=== PATIENT | female | born 1930 | race Caucasian/White ===

== ENCOUNTER 2017-01-11 13:42 | Emergency (ER) | payer OTHER ==
[~2017-01-11] VITALS: Ht 165.1 cm; Wt 92.1 kg
[~2017-01-11 13:42] MED LIST: ACET-1138 PO; ASPEC325 PO; CALC150C PO; CHOL1000 PO; COEN75CA PO; FRRG PO; IPRA0.037 NAE; LEVO112T2 PO; MULT-614 PO; NAPR220T40 PO; PRAV40TA2 PO; ULT50X PO
[2017-01-11 13:50] VITALS: TEMP 36.4; O2SAT 94; Ht 165.1 cm; Wt 92.1 kg
--- NOTE | 2017-01-11 14:04 | EMERGENCY ROOM VISIT NOTE ---
History First contact with patient: 13:49 Chief Complaint: CHEST PAIN Stated Complaint: CHEST PAIN Nursing Triage Summary: Patient arrives via ALS from the [facility] with complaints of chest pain. Patient reports walking in the [place] when suddenly she got 3 sharp pains in her chest, patient sat down to rest and called ambulance. Patient is now pain free, no complaints at this time. History of Present Illness The patient is an 86 year old female who presents to the Emergency Room with complaints of chest pain. The patient states that approximately 2 hours ago she was walking out of the [employer]. She states that she noticed 3 very distinct, sharp, "jabs of pain." She states the pain was in the area of the right breast and did not radiate. She states that after these 3 "jabs" of pain she has not had any discomfort, pressure. She has not had any shortness of breath. She states she did not do any strenuous activity at the [employer]. She denies any pain currently. She denies any diaphoresis. She denies any rashes to the chest. The patient states she has had intermittent headaches recently but has no headache today. She denies any numbness, tingling or weakness in the upper or lower extremities. She denies syncope. She denies nausea, vomiting, abdominal pain. She denies any urinary symptoms. The patient states she has never had a stress test. Review of Systems A 10 system review of systems was completed with positives and pertinent negatives listed in the HPI. Past Medical/Surgical History Medical Problems: (1) HLD (hyperlipidemia) (2) Hypothyroidism (3) Osteoporosis (4) Right Knee DJD Surgical Problems: (1) H/O thyroidectomy (2) History of total abdominal hysterectomy Family History FH: cancer Social History Smoking Status: Never Smoker Marital Status: Housing Status: lives with family Occupation Status: retired Current/Historical Medications Scheduled Acetaminophen (Tylenol Extra Strength), 1,000 MG PO Q8 Aspirin (Aspirin Ec), 81 MG PO DAILY Calcium Citrate (Vinicio-Citrate), 300 MG PO QAM Donepezil HCl (Donepezil HCl), 1 TAB PO DAILY Levothyroxine Sodium (Synthroid), 112 MCG PO QAM Multiple Vitamins W/ Minerals (Centrum Silver Ultra [place]ome), 1 TAB PO QAM Naproxen Sodium (Aleve), 220 MG PO AMPM Pravastatin Sodium (Pravastatin Sodium), 40 MG PO QPM Venlafaxine HCl (Venlafaxine HCl), 1 TAB PO BID Allergies Coded Allergies: No Known Allergies (Unverified , 01/11/17) Physical Exam Vital Signs Date Time Temp Pulse Resp B/P Pulse Ox O2 Delivery O2 Flow Rate FiO2 01/11/17 16:41 72 18 138/76 97 Room Air 01/11/17 15:14 73 18 140/85 96 Room Air 01/11/17 14:36 72 22 161/72 96 Room Air 01/11/17 13:50 94 Room Air 01/11/17 13:50 94 Room Air 01/11/17 13:50 36.4 86 18 150/70 94 Room Air 01/11/17 13:48 88 Physical Exam VITALS: Vitals are noted on the nurse's note and reviewed by myself. Vital signs stable. GENERAL: This is an 86-year-old female, in no acute distress, nondiaphoretic, well-developed well-nourished. SKIN: The skin was without rashes, erythema, edema, or bruising. There is no tenting of the skin. Capillary reflex less than 2 seconds. HEAD: Normocephalic atraumatic. EARS: External auditory canals clear, tympanic membranes pearly baker without erythema or effusion bilaterally. EYES: Pupils equal round and reactive to light and accommodation. Conjunctivae without injection, sclerae without icterus. Extraocular movements intact. NOSE: Patent, turbinates without inflammation or discharge. No sinus tenderness. MOUTH: Mucous membranes moist. Tonsils are not enlarged. Pharynx without erythema or exudate. Uvula midline. Airway patent. Tongue does not deviate. NECK: Supple without nuchal rigidity. No lymphadenopathy. No thyromegaly. Cervical spine is nontender. No JVD. HEART: Regular rate and rhythm without murmurs gallops or rubs. LUNGS: Clear to auscultation bilaterally without wheezes, rales or rhonchi. No retractions or accessory muscle use. There is tenderness to palpation over the right chest in the area at the breast. There are no rashes. ABDOMEN: Positive bowel sounds x 4. Soft, nontender, without masses or organomegaly. MUSCULOSKELETAL: No muscle atrophy, erythema, or edema noted. Full range of motion in all extremities. No tenderness to palpation. Normal gait. Strength 5/5 throughout. NEURO: Patient was alert and oriented to person place and time. No focal neurological deficits. Medical Decision & Procedures ER Provider Diagnostic Interpretation: [~ rep ct add3]] CHEST ONE VIEW PORTABLE CLINICAL HISTORY: Atypical chest pain COMPARISON STUDY: 11/23/2012 FINDINGS: The cardiac and mediastinal contours are normal. There is no evidence of focal pulmonary consolidation. There is no evidence of failure. No pleural effusions are visualized.[ There is a calcified granuloma the left lung base. There is a linear area of scar/atelectatic change at the left lung base. IMPRESSION: No active disease in the chest. Laboratory Results 01/11/17 13:55 Red Blood Count 4.55, Mean Corpuscular Volume 89.0, Mean Corpuscular Hemoglobin 29.0, Mean Corpuscular Hemoglobin Concent 32.6, Mean Platelet Volume 10.6, Neutrophils (%) (Auto) 65.4, Lymphocytes (%) (Auto) 23.9, Monocytes (%) (Auto) 8.7, Eosinophils (%) (Auto) 1.8, Basophils (%) (Auto) 0.2, Neutrophils # (Auto) 4.29, Lymphocytes # (Auto) 1.57, Monocytes # (Auto) 0.57, Eosinophils # (Auto) 0.12, Basophils # (Auto) 0.01 01/11/17 14:25 Test 01/11/17 13:55 01/11/17 14:25 01/11/17 16:12 White Blood Count 6.56 K/uL (4.8-10.8) Red Blood Count 4.55 M/uL (4.2-5.4) Hemoglobin 13.2 g/dL (12.0-16.0) Hematocrit 40.5 % (37-47) Mean Corpuscular Volume 89.0 fL (80-100) Mean Corpuscular Hemoglobin 29.0 pg (25-34) Mean Corpuscular Hemoglobin Concent 32.6 g/dl (32-36) Platelet Count 199 K/uL (130-400) Mean Platelet Volume 10.6 fL (7.4-10.4) Neutrophils (%) (Auto) 65.4 % Lymphocytes (%) (Auto) 23.9 % Monocytes (%) (Auto) 8.7 % Eosinophils (%) (Auto) 1.8 % Basophils (%) (Auto) 0.2 % Neutrophils # (Auto) 4.29 K/uL (1.4-6.5) Lymphocytes # (Auto) 1.57 K/uL (1.2-3.4) Monocytes # (Auto) 0.57 K/uL (0.11-0.59) Eosinophils # (Auto) 0.12 K/uL (0-0.5) Basophils # (Auto) 0.01 K/uL (0-0.2) RDW Standard Deviation 47.4 fL (36.4-46.3) RDW Coefficient of Variation 14.4 % (11.5-14.5) Immature Granulocyte % (Auto) 0.0 % Immature Granulocyte # (Auto) 0.00 K/uL (0.00-0.02) Prothrombin Time 10.4 SECONDS (9.0-12.0) Prothromb Time International Ratio 1.0 (0.9-1.1) Activated Partial Thromboplast Time 25.6 SECONDS (21.0-31.0) Partial Thromboplastin Ratio 1.0 Anion Gap 5.0 mmol/L (3-11) Est Creatinine Clear Calc Drug Dose 61.2 ml/min Estimated GFR () 85.0 Estimated GFR (Non- 73.4 BUN/Creatinine Ratio 33.2 (10-20) Calcium Level 9.8 mg/dl (8.5-10.1) Total Bilirubin 0.3 mg/dl (0.2-1) Aspartate Amino Transf (AST/SGOT) 19 U/L (15-37) Alanine Aminotransferase (ALT/SGPT) 22 U/L (12-78) Alkaline Phosphatase 88 U/L (45-117) Total Creatine Kinase 36 U/L (26-192) Creatine Kinase MB 0.5 ng/ml (0.5-3.6) Creatine Kinase MB Ratio 1.4 (0-3.0) Total Protein 7.5 gm/dl (6.4-8.2) Albumin 3.6 gm/dl (3.4-5.0) Globulin 3.9 gm/dl (2.5-4.0) Albumin/Globulin Ratio 0.9 (0.9-2) Troponin I < 0.015 ng/ml (0-0.045) Procedure The patient was monitored on a clinical research monitor. They maintained a normal sinus rhythm without ectopy. While the patient was in the emergency department she had another episode of 5 "jabs." A repeat EKG was obtained which was unchanged. Also, I reviewed the monitor with the monitor tach and there was no evidence for arrhythmia. ECG Indication: chest pain Rate (beats per minute): 70 Rhythm: normal sinus Findings: LAFB, RBBB Change: no significant change ED Course The patient was seen and examined. Previous visits were reviewed. The patient does not have a fever or leukocytosis. She does not have any significant electrolyte abnormalities. Cardiac enzymes were not elevated. Repeat troponin was not elevated. INR was 1.0. Chest x-ray does not reveal any acute arrhythmia EKG is unchanged from previous. The monitor strip was reviewed and the patient complained of 5 "jabs" of pain. There is no evidence for PVC, arrhythmia. The patient presents to the emergency department with right-sided chest pain. She describes this pain as very brief jabs of pain which last less than a few seconds. When she is not having the episode, she is completely pain-free. She has not had any dyspnea. She does have some tenderness to palpation of the chest. The exact etiology is unclear and may be musculoskeletal in nature. She was also advised to watch for rash in the event this represents a neurologic pain from potential shingles. She should contact her family doctor tomorrow to schedule a follow-up appointment for further evaluation and management. She should return to the ER with any worsening symptoms. The patient was also seen and examined by Dr. Delgado who agrees with the assessment and treatment plan. Medical Decision DIFFERENTIAL DIAGNOSIS: Aortic dissection, myocarditis, pericarditis, cervical disc disease, costochondritis, herpes zoster, rib fracture, pleuritis, pneumonia , pulmonary embolus, tension pneumothorax, anxiety disorder, somatoform disorder , choledocholithiasis, status, esophagitis, esophageal spasm, esophageal reflux , esophageal rupture, pancreatitis, peptic ulcer disease, cardiac ischemia, ST elevation MS, acute coronary syndrome, arrhythmia, coronary artery vasospasm. vavular heart disease, coronary artery disease, among others. Impression Primary Impression: Substernal precordial chest pain Departure Information Dispostion Home / Self-Care Condition GOOD Referrals Hugh Alcocer M.D. (PCP) Patient Instructions Chest Pain - [facility], [facility] Additional Instructions Return with constant pain, worsening symptoms Otherwise, recheck with your family doctor this week, call for an appointment
[2017-01-11 14:07] LABS: BASO % 0.2 %; BASO ABS # 0.01 K/uL (0-0.2); COMPLETE YES; EOS % 1.8 %; HEMATOCRIT 40.5 % (37-47); LYMPH % 23.9 %; LYMPH ABS # 1.57 K/uL (1.2-3.4); MEAN CORPUSCULAR HGB CONC 32.6 g/dl (32-36); MEAN PLATELET VOLUME 10.6 fL (7.4-10.4); MONO % 8.7 %; NEUT % 65.4 %; PLATELET COUNT 199 K/uL (130-400); RED BLOOD COUNT 4.55 M/uL (4.2-5.4); WHITE BLOOD COUNT 6.56 K/uL (4.8-10.8)
--- NOTE | 2017-01-11 14:15 | DIAGNOSTIC IMAGING REPORT ---
CHEST ONE VIEW PORTABLE CLINICAL HISTORY: Atypical chest pain COMPARISON STUDY: 11/23/2012 FINDINGS: The cardiac and mediastinal contours are normal. There is no evidence of focal pulmonary consolidation. There is no evidence of failure. No pleural effusions are visualized.[ There is a calcified granuloma the left lung base. There is a linear area of scar/atelectatic change at the left lung base. IMPRESSION: No active disease in the chest. Electronically signed by: Sammy Phillip M.D. 01/11/2017 2:14 PM Dictated Date/Time: 01/11/2017 2:14 PM
[2017-01-11] MEDS ORDERED: ARC5 PO (14:44)
[2017-01-11] MEDS ORDERED: ASPI81TA28 PO (14:44)
[2017-01-11 14:46] LABS: PROTHROMBIN TIME (PATIENT) 10.4 SECONDS (9.0-12.0)
[2017-01-11] MEDS ORDERED: EFF50 PO (14:47)
[2017-01-11 14:55] LABS: ALT/SGPT 22 U/L (12-78); AST/SGOT 19 U/L (15-37); BLOOD UREA NITROGEN 25 mg/dl (7-18); BUN/CREATININE RATIO 33.2 (10-20); CALCIUM 9.8 mg/dl (8.5-10.1); CARBON DIOXIDE 31 mmol/L (21-32); CHLORIDE 107 mmol/L (98-107); CREATININE 0.74 mg/dl (0.60-1.20); GLUCOSE 96 mg/dl (70-99); SODIUM 143 mmol/L (136-145)
[2017-01-11 15:00] LABS: ALB/GLOB RATIO 0.9 (0.9-2); ALKALINE PHOSPHATASE 88 U/L (45-117); CKMB/CK RATIO 1.4 (0-3.0)
[2017-01-11 16:41] VITALS: BP 138/76; PULSE 72; O2SAT 97
--- NOTE | 2017-01-11 20:36 | EMERGENCY ROOM VISIT NOTE ---
ED Visit Note First contact with patient: 13:49 I have personally seen and evaluated the patient with the PA. I agree with the diagnosis and management decisions and have been personally involved in the case. Please see Rosy Whitaker PA-C's notes for further details of the history, physical and visit.
== END 2017-01-11 17:17 | disposition home or self-care (01) ==
LOC: EDBD 13:42 → C.EDB 13:43
DX: R07.2 Precordial pain (principal); E78.5 Hyperlipidemia, unspecified; E03.9 Hypothyroidism, unspecified; M81.0 Age-related osteoporosis without current pathological fracture; Z79.82 Long term (current) use of aspirin

== ENCOUNTER 2017-12-21 07:05 | Observation (INO) | payer OTHER ==
[~2017-12-21] VITALS: Ht 154.9 cm; Wt 97.7 kg
[~2017-12-21 07:05] MED LIST changes: +ARC5 PO; -ASPEC325 PO; +ASPI81TA28 PO; -CHOL1000 PO; -COEN75CA PO; +EFF50 PO; -FRRG PO; -IPRA0.037 NAE; -ULT50X PO
[2017-12-21] MEDS ORDERED: ACETAMINOPHEN 325 MG TAB PO STA (07:22)
--- NOTE | 2017-12-21 07:23 | EMERGENCY ROOM VISIT NOTE ---
History Report prepared by Rachael: Cliff Valenzuela Under the Supervision of: Dr. Emily Delgado M.D. First contact with patient: 07:11 Stated Complaint: HIP AND LEG PAIN History of Present Illness The patient is a 87 year old female who presents to the Emergency Room with complaints of intermittent left leg pain that began last night. The patient states that she is here today because "I couldn't get out of bed this morning without it killing me." The patient's daughter at bedside notes that the patient began to complain of the left leg pain last night, but was able to ambulate normally. This morning the patient yelled for the daughter to come help her out of bed, as she was unable to get up. The daughter notes that the patient was in a lot of pain this morning, which was worsened significantly by the slight movement of trying to put her socks on for her. She currently does not have any pain if she is laying flat. The patient deny and recent urinary irregularities or fevers. She notes that she does not take any medication for her blood pressures. Source of History: patient, family Onset: Last night Position: leg (left, and hip) Timing: intermittent Modifying Factors (Worsening): movement Modifying Factors (Relieving): other (laying flat) Associated Symptoms: No fevers, No urinary symptoms Review of Systems See HPI for pertinent positives & negatives. A total of 10 systems reviewed and were otherwise negative. Past Medical & Surgical Medical Problems: (1) HLD (hyperlipidemia) (2) Hypothyroidism (3) Osteoporosis (4) Right Knee DJD Surgical Problems: (1) H/O thyroidectomy (2) History of total abdominal hysterectomy Family History FH: cancer Social History Smoking Status: Never Smoker Marital Status: Housing Status: lives with family Occupation Status: retired Current/Historical Medications Scheduled Aspirin (Aspirin Ec), 81 MG PO DAILY Calcium Citrate (Vinicio-Citrate), 300 MG PO QAM Levothyroxine Sodium (Synthroid), 112 MCG PO QAM Mirtazapine (Mirtazapine), 15 MG PO HS Multiple Vitamins W/ Minerals (Centrum Silver Ultra [place]), 1 TAB PO QAM Naproxen Sodium (Aleve), 220 MG PO AMPM Pravastatin Sodium (Pravastatin Sodium), 40 MG PO QPM Allergies Coded Allergies: No Known Allergies (Unverified , 01/11/17) Physical Exam Vital Signs Date Time Temp Pulse Resp B/P (MAP) Pulse Ox O2 Delivery O2 Flow Rate FiO2 12/21/17 18:45 65 18 197/92 96 Room Air 12/21/17 17:28 71 20 220/91 99 Room Air 12/21/17 16:04 63 18 165/83 97 Room Air 12/21/17 13:00 66 18 171/88 98 Room Air 12/21/17 11:30 67 18 167/85 98 Room Air 12/21/17 09:55 66 18 170/85 98 Room Air 12/21/17 09:29 76 20 171/75 98 12/21/17 07:35 70 20 208/99 96 12/21/17 07:13 36.8 88 20 205/137 95 Room Air Physical Exam Vital signs reviewed. General: Well-appearing, obese, elderly female, in no significant distress. HEENT: No scleral icterus, PERRLA, neck supple. Atraumatic. Cardiovascular: Regular rate and rhythm, no extra sounds. Pulmonary: Clear to auscultation bilaterally, normal work of breathing. Abdomen: Soft, nontender, nondistended, positive bowel sounds. Musculoskeletal: Atraumatic, no peripheral edema. Intermittent pain with straight leg raise to the left inguinal region. Full ROM of the left hip without crepitus. Neurologic: Patient awake alert and answers most questions appropriately. Occasional confusion. full strength in all 4 extremities. Cranial nerves 2 through 12 grossly intact. Skin: Warm, dry, no rash Medical Decision & Procedures ER Provider Diagnostic Interpretation: Radiology results as stated below per my review and radiologist interpretation: LEFT HIP 2 VIEWS HISTORY: Left hip pain. COMPARISON: None. FINDINGS: There is no fracture or dislocation. Soft tissues are unremarkable. Mild cartilage space narrowing. IMPRESSION: No fracture or dislocation within the left hip. Electronically signed by: Tej Abdi M.D. 12/21/2017 8:50 AM Dictated Date/Time: 12/21/2017 8:49 AM L-SPINE MIN 4 VIEWS ROUTINE HISTORY: Pain. Lumbar radiculopathy COMPARISON: None. FINDINGS: There is no fracture. Considerable degenerative disc change at the entire lumbar region. Very slight wedge deformity inferior endplate L1 considerable debris old radiographically. No evidence for an acute compression deformity. No significant subluxation. Mild anterior and posterior osteophytic formation throughout. Mild generalized osteopenia. IMPRESSION: Significant degenerative change throughout the entire lumbar region. Osteopenia. No acute bony abnormality. The above report was generated using voice recognition software. It may contain grammatical, syntax or spelling errors. Electronically signed by: Rehan Johnson M.D. 12/21/2017 8:52 AM Dictated Date/Time: 12/21/2017 8:49 AM Laboratory Results Test 12/21/17 08:00 12/21/17 15:05 Urine Color YELLOW Urine Appearance CLOUDY (CLEAR) Urine pH 7.5 (4.5-7.5) Urine Specific [place] 1.018 (1.000-1.030) Urine Protein NEG (NEG) Urine Glucose (UA) NEG (NEG) Urine Ketones NEG (NEG) Urine Occult Blood NEG (NEG) Urine Nitrite NEG (NEG) Urine Bilirubin NEG (NEG) Urine Urobilinogen NEG (NEG) Urine Leukocyte Esterase NEG (NEG) Urine WBC (Auto) 1-5 /hpf (0-5) Urine RBC (Auto) 0-4 /hpf (0-4) Urine Hyaline Casts (Auto) 0 /lpf (0-5) Urine Epithelial Cells (Auto) 0-5 /lpf (0-5) Urine Bacteria (Auto) NEG (NEG) RDW Standard Deviation 46.0 fL (36.4-46.3) RDW Coefficient of Variation 14.3 % (11.5-14.5) White Blood Count 5.58 K/uL (4.8-10.8) Red Blood Count 4.53 M/uL (4.2-5.4) Hemoglobin 13.0 g/dL (12.0-16.0) Hematocrit 39.8 % (37-47) Mean Corpuscular Volume 87.9 fL (80-100) Mean Corpuscular Hemoglobin 28.7 pg (25-34) Mean Corpuscular Hemoglobin Concent 32.7 g/dl (32-36) Platelet Count 165 K/uL (130-400) Mean Platelet Volume 11.2 fL (7.4-10.4) Neutrophils (%) (Auto) 59.6 % Lymphocytes (%) (Auto) 27.1 % Monocytes (%) (Auto) 9.1 % Eosinophils (%) (Auto) 3.8 % Basophils (%) (Auto) 0.2 % Neutrophils # (Auto) 3.33 K/uL (1.4-6.5) Lymphocytes # (Auto) 1.51 K/uL (1.2-3.4) Monocytes # (Auto) 0.51 K/uL (0.11-0.59) Eosinophils # (Auto) 0.21 K/uL (0-0.5) Basophils # (Auto) 0.01 K/uL (0-0.2) Immature Granulocyte % (Auto) 0.2 % Immature Granulocyte # (Auto) 0.01 K/uL (0.00-0.02) Prothrombin Time 10.1 SECONDS (9.0-12.0) Prothromb Time International Ratio 1.0 (0.9-1.1) Est Creatinine Clear Calc Drug Dose 49.9 ml/min Total Bilirubin 0.5 mg/dl (0.2-1) Direct Bilirubin 0.1 mg/dl (0-0.2) Aspartate Amino Transf (AST/SGOT) 16 U/L (15-37) Alanine Aminotransferase (ALT/SGPT) 19 U/L (12-78) Alkaline Phosphatase 79 U/L (45-117) Total Protein 7.2 gm/dl (6.4-8.2) Albumin 3.2 gm/dl (3.4-5.0) Thyroid Stimulating Hormone (TSH) 0.396 uIu/ml (0.300-4.500) Laboratory results per my review. Medications Administered Medications (Trade) Dose Ordered Sig/Vincent Route Start Time Stop Time Status Last Admin Dose Admin Acetaminophen (Tylenol Tab) 650 mg NOW STAT PO 12/21/17 07:22 12/21/17 07:25 DC 12/21/17 07:35 650 MG Lorazepam (Ativan Tab) 0.5 mg NOW STAT SL 12/21/17 07:24 12/21/17 07:25 DC 12/21/17 07:35 0.5 MG Tramadol HCl (Ultram Tab) 50 mg NOW STAT PO 12/21/17 11:12 12/21/17 11:15 DC 12/21/17 11:29 50 MG Ketorolac Tromethamine (Toradol Inj) 15 mg ONE STAT IV 12/21/17 18:45 12/21/17 18:50 DC 12/21/17 21:30 15 MG ED Course 0714: Past medical records reviewed. The patient was evaluated in room B7. A complete history and physical examination was performed. 07: Tylenol 650 mg PO. 0724: Ordered Lorazepam 0.5 mg SL. 1049: Upon reevaluation, the patient appeared to have improvement of her symptoms. I discussed findings with he. She verbalized agreement of the treatment plan. The patient was discharged home. Medical Decision Differential diagnosis: Etiologies such as fracture, dislocation, neurovascular compromise, compartment syndrome, soft tissue injury, as well as others were entertained. This patient was evaluated and appeared to be in no significant distress. When lying in bed she is resting comfortably. X-rays of lumbar spine and the left hip were obtained and are negative for acute fracture. There is significant degenerative disc disease of the low back. Patient was given p.o. Tylenol for her pain. The patient performed an ambulatory trial with a walker with minimal to no assistance. Patient sat in a chair then for approximately 1 hour at the bedside. Upon standing from the chair she yelled in pain. She was given Ultram 50 mg p.o. Patient's daughter became tearful and anxious, stating she was not be able to take the patient home if she cannot walk. The patient was able to ambulate for me at the bedside thereafter however not able to lift her left leg without hesitancy/pain. A PT/OT evaluation was ordered. Patient was felt not to be safe for discharge home. They did recommend a CT scan of the pelvis which was performed and negative. Laboratory work was performed for medical clearance. UA is negative. Referral to [facility] was placed and currently we are waiting insurance approval. The case has been signed out to Dr. Martinez at the change of shift, please see his notes for final disposition. Medication Reconcilliation Current Medication List: was personally reviewed by me Blood Pressure Screening Patient's blood pressure: Elevated blood pressure Blood pressure disposition: Referred to PCP Impression Primary Impression: Left lumbar radiculopathy Additional Impression: Ambulatory dysfunction Scribe Attestation The scribe's documentation has been prepared under my direction and personally reviewed by me in its entirety. I confirm that the note above accurately reflects all work, treatment, procedures, and medical decision making performed by me. Departure Information Dispostion Home / Self-Care Referrals Candida Giles D.O. (PCP) Forms HOME CARE DOCUMENTATION FORM, IMPORTANT VISIT INFORMATION, WORK / SCHOOL INSTRUCTIONS Patient Instructions My [facility] Additional Instructions Diagnosis: Left lumbar radiculopathy Please use your cane or walker to ambulate at all times. Tylenol 650 mg every 6 hours as needed for pain. Warm compresses and gentle stretching. Follow-up with your PCP this week for reevaluation. Return to the emergency department for worsening of symptoms or any medical concerns per Problem Qualifiers
[2017-12-21] MEDS ORDERED: MIRT15TA53 PO (07:24)
[2017-12-21] MEDS ORDERED: LORAZEPAM 0.5 MG TAB SL STA (07:24)
--- NOTE | 2017-12-21 08:52 | DIAGNOSTIC IMAGING REPORT ---
LEFT HIP 2 VIEWS HISTORY: Left hip pain. COMPARISON: None. FINDINGS: There is no fracture or dislocation. Soft tissues are unremarkable. Mild cartilage space narrowing. IMPRESSION: No fracture or dislocation within the left hip. Electronically signed by: Tej Abdi M.D. 12/21/2017 8:50 AM Dictated Date/Time: 12/21/2017 8:49 AM
--- NOTE | 2017-12-21 08:53 | DIAGNOSTIC IMAGING REPORT ---
L-SPINE MIN 4 VIEWS ROUTINE HISTORY: Pain. Lumbar radiculopathy COMPARISON: None. FINDINGS: There is no fracture. Considerable degenerative disc change at the entire lumbar region. Very slight wedge deformity inferior endplate L1 considerable debris old radiographically. No evidence for an acute compression deformity. No significant subluxation. Mild anterior and posterior osteophytic formation throughout. Mild generalized osteopenia. IMPRESSION: Significant degenerative change throughout the entire lumbar region. Osteopenia. No acute bony abnormality. The above report was generated using voice recognition software. It may contain grammatical, syntax or spelling errors. Electronically signed by: Rehan Johnson M.D. 12/21/2017 8:52 AM Dictated Date/Time: 12/21/2017 8:49 AM
[2017-12-21] MEDS ORDERED: TRAMADOL HCL 50 MG TAB PO STA (11:12)
--- NOTE | 2017-12-21 14:36 | DIAGNOSTIC IMAGING REPORT ---
PELVIS NO IV/ORAL CONT (CT) CLINICAL HISTORY: L hip pain s/p fall trauma. Pain. TECHNIQUE: Transaxial acquisition with multi axial reformatted images COMPARISON STUDY: Left hip series 12/21/2017 FINDINGS: Degenerative change considered moderate involving both hips. No evidence for fracture or dislocation. The cortical margins are intact. Moderate degenerative change of the sacroiliac joints. Rather significant degenerative changes of the low lumbar spine. Pelvic and pubic rings appear to be intact. Symphysis pubis is intact. No evidence for hematoma or collection. Nonobstructive bowel pattern within the low pelvis. IMPRESSION: Degenerative change. No acute bony abnormality. The above report was generated using voice recognition software. It may contain grammatical, syntax or spelling errors. Electronically signed by: Rehan Johnson M.D. 12/21/2017 2:35 PM Dictated Date/Time: 12/21/2017 2:31 PM
[2017-12-21 15:21] LABS: BASO % 0.2 %; BASO ABS # 0.01 K/uL (0-0.2); EOS % 3.8 %; EOS ABS # 0.21 K/uL (0-0.5); HEMATOCRIT 39.8 % (37-47); IG# 0.01 K/uL (0.00-0.02); LYMPH % 27.1 %; LYMPH ABS # 1.51 K/uL (1.2-3.4); MEAN CELL VOLUME 87.9 fL (80-100); MEAN CORPUSCULAR HEMOGLOBIN 28.7 pg (25-34); MEAN CORPUSCULAR HGB CONC 32.7 g/dl (32-36); MEAN PLATELET VOLUME 11.2 fL (7.4-10.4); MONO % 9.1 %; MONO ABS # 0.51 K/uL (0.11-0.59); NEUT % 59.6 %; NEUT ABS # 3.33 K/uL (1.4-6.5); PLATELET COUNT 165 K/uL (130-400); RED CELL DISTRIBUTION WIDTH CV 14.3 % (11.5-14.5); WHITE BLOOD COUNT 5.58 K/uL (4.8-10.8)
[2017-12-21 15:48] LABS: ALBUMIN 3.2 gm/dl (3.4-5.0); CALCIUM 9.2 mg/dl (8.5-10.1); CREATININE 0.85 mg/dl (0.60-1.20); POTASSIUM 4.3 mmol/L (3.5-5.1)
[2017-12-21 15:50] LABS: TOTAL PROTEIN 7.2 gm/dl (6.4-8.2)
--- NOTE | 2017-12-21 17:37 | EMERGENCY ROOM VISIT NOTE ---
ED Visit Note First contact with patient: 17:37 I received this patient at change of shift signout from Dr. Delgado. Please see her note for complete history and physical. The patient was referred to [facility] after her PT and OT consult. The patient was denied from [facility] for this evening. She was unable to go home because of her ambulatory status. I discussed this case with the on-call [facility] hospitalist group. They have agreed to evaluate the patient in the emergency department for further management and disposition.
[2017-12-21] MEDS ORDERED: ACETAMINOPHEN 325 MG TAB PO PRN (18:45)
[2017-12-21] MEDS ORDERED: MAGNESIUM HYDROXIDE SUSP 30 ML UDC PO PRN (18:45)
[2017-12-21] MEDS ORDERED: ONDANSETRON INJ 2 MG/ML 2 ML VIAL IV PRN (18:45)
[2017-12-21] MEDS ORDERED: KETOROLAC TROMETHAMINE 15 MG/ML VIAL IV STA (18:45)
[2017-12-21] MEDS ORDERED: HydrALAZINE HCL 20 MG/ML VIAL IV. PRN (19:15)
--- NOTE | 2017-12-21 19:48 | History and Physical ---
History & Physical Date & Time of Service: Dec 21, 2017 at 19:07 Chief Complaint: Hip And Leg Pain Primary Care Physician: Candida Giles D.O. History of Present Illness Source: patient, family, clinic records, hospital records Pt is 87 y/o F with PMH dementia, dyslipidemia, hypothyroidism presented to ER with complaint of left groin and left leg pain. Patient with history of dementia and limited history obtained from patient, daughter provides majority of history. Patient is alert to place and person and her daughter reports patient at her baseline. Patient lives with her daughter. Daughter reports 2 days ago patient complaining of left groin and left leg pain increased with ambulation. She reports this morning patient attempted to get out of bed and was yelling for her to help. Patient was having increased pain and could not stand. Complains of pain left groin and left lower back radiates down to her lower leg. Patient also complaining of left knee pain. Denies any noted swelling or erythema or ecchymosis of the leg. Denies any known injury. Patient uses Aleve twice daily. Uses cane. Denies any falls. Daughter reports history of right knee replacement 2016 had some elevated blood pressures with pain at that point in time however otherwise does not have a history of hypertension. Patient has been eating and drinking. Patient with chronic urinary and fecal incontinence denies any worsening. Denies any hematuria or dysuria or increased frequency. Denies fever/chills, diaphoresis, N/V/D/C, MARMOLEJO, dizziness, syncope, vision changes, neck pain, CP, SOB, orthopnea, palpitations , cough, sore throat, choking, otalgia, rhinorrhea, abdominal pain, melena, hematochezia extremity edema, rashes, weight changes. In ER given Tylenol, Ativan, tramadol. Had CT pelvis for fracture, left hip x- ray negative for fracture, left spine x-ray negative for fracture posterior degenerative changes. Patient with difficulty ambulating and PT evaluated patient and ER tried to get patient placed to [facility] today however was unable to. Past Medical/Surgical History Medical Problems: (1) HLD (hyperlipidemia) Status: Chronic (2) Hypothyroidism Status: Chronic (3) Osteoporosis Status: Chronic (4) Right Knee DJD Status: Chronic Surgical Problems: (1) H/O thyroidectomy Status: Chronic (2) History of total abdominal hysterectomy Status: Chronic Family History FH: cancer Social History Smoking Status: Never Smoker Smokeless Tobacco Use: No Alcohol Use: Rare Drug Use: none Marital Status: Housing status: lives with family Occupational Status: retired Allergies Coded Allergies: No Known Allergies (Unverified , 01/11/17) Home Medications Scheduled Aspirin (Aspirin Ec), 81 MG PO DAILY Calcium Citrate (Vinicio-Citrate), 300 MG PO QAM Levothyroxine Sodium (Synthroid), 112 MCG PO QAM Mirtazapine (Mirtazapine), 15 MG PO HS Multiple Vitamins W/ Minerals (Centrum Silver Ultra Wome), 1 TAB PO QAM Naproxen Sodium (Aleve), 220 MG PO AMPM Pravastatin Sodium (Pravastatin Sodium), 40 MG PO QPM Review of Systems See HPI for pertinent positives & negatives. All other systems reviewed and were otherwise negative Physical Exam Vital Signs Date Time Temp Pulse Resp B/P (MAP) Pulse Ox O2 Delivery O2 Flow Rate FiO2 12/21/17 18:45 65 18 197/92 96 Room Air 12/21/17 17:28 71 20 220/91 99 Room Air 12/21/17 16:04 63 18 165/83 97 Room Air 12/21/17 13:00 66 18 171/88 98 Room Air 12/21/17 11:30 67 18 167/85 98 Room Air 12/21/17 09:55 66 18 170/85 98 Room Air 12/21/17 09:29 76 20 171/75 98 12/21/17 07:35 70 20 208/99 96 12/21/17 07:13 36.8 88 20 205/137 95 Room Air General Appearance: WD/WN, no apparent distress Head: normocephalic, atraumatic Eyes: normal inspection, PERRL, EOMI, sclerae normal ENT: pharynx normal, + pertinent finding (Hard of hearing, mucous membranes moist) Neck: supple, no JVD, trachea midline Respiratory/Chest: chest non-tender, lungs clear, normal breath sounds, no respiratory distress Cardiovascular: regular rate, rhythm, normal peripheral pulses Abdomen/GI: normal bowel sounds, non tender, soft Back: normal inspection, no CVA tenderness, + pertinent finding (Nontender to palpation) Extremities/Musculoskelatal: + pedal edema (1+ bilaterally), + pertinent finding (No erythema, ecchymosis or rashes noted. Right anterior knee with healed surgical scar. Right hip, knee, ankle with active range of motion intact without tenderness. No tenderness to palpation. Left anterior and lateral hip with mild tenderness to palpation with very limited active flexion secondary to discomfort. Left anterior knee with tenderness to palpation with very limited flexion secondary to discomfort. Distal pulses intact, sensation to light touch intact, brisk capillary refill) Neurologic/Psych: alert, + pertinent finding (Oriented to person and place. Patient mildly anxious) Skin: normal color, warm/dry Diagnostics Laboratory Results Results Past 24 Hours Test 12/21/17 08:00 12/21/17 15:05 12/21/17 18:50 12/21/17 18:56 Range/Units Urine Color YELLOW Urine Appearance CLOUDY CLEAR Urine pH 7.5 4.5-7.5 Urine Specific [place] 1.018 1.000-1.030 Urine Protein NEG NEG Urine Glucose (UA) NEG NEG Urine Ketones NEG NEG Urine Occult Blood NEG NEG Urine Nitrite NEG NEG Urine Bilirubin NEG NEG Urine Urobilinogen NEG NEG Urine Leukocyte Esterase NEG NEG Urine WBC (Auto) 1-5 0-5 /hpf Urine RBC (Auto) 0-4 0-4 /hpf Urine Hyaline Casts (Auto) 0 0-5 /lpf Urine Epithelial Cells (Auto) 0-5 0-5 /lpf Urine Bacteria (Auto) NEG NEG White Blood Count 5.58 4.8-10.8 K/uL Red Blood Count 4.53 4.2-5.4 M/uL Hemoglobin 13.0 12.0-16.0 g/dL Hematocrit 39.8 37-47 % Mean Corpuscular Volume 87.9 80-100 fL Mean Corpuscular Hemoglobin 28.7 25-34 pg Mean Corpuscular Hemoglobin Concent 32.7 32-36 g/dl Platelet Count 165 130-400 K/uL Mean Platelet Volume 11.2 7.4-10.4 fL Neutrophils (%) (Auto) 59.6 % Lymphocytes (%) (Auto) 27.1 % Monocytes (%) (Auto) 9.1 % Eosinophils (%) (Auto) 3.8 % Basophils (%) (Auto) 0.2 % Neutrophils # (Auto) 3.33 1.4-6.5 K/uL Lymphocytes # (Auto) 1.51 1.2-3.4 K/uL Monocytes # (Auto) 0.51 0.11-0.59 K/uL Eosinophils # (Auto) 0.21 0-0.5 K/uL Basophils # (Auto) 0.01 0-0.2 K/uL RDW Standard Deviation 46.0 36.4-46.3 fL RDW Coefficient of Variation 14.3 11.5-14.5 % Immature Granulocyte % (Auto) 0.2 % Immature Granulocyte # (Auto) 0.01 0.00-0.02 K/uL Sodium Level 141 136-145 mmol/L Potassium Level 4.3 3.5-5.1 mmol/L Chloride Level 109 98-107 mmol/L Carbon Dioxide Level 31 21-32 mmol/L Anion Gap 1.0 3-11 mmol/L Blood Urea Nitrogen 22 7-18 mg/dl Creatinine 0.85 0.60-1.20 mg/dl Est Creatinine Clear Calc Drug Dose 49.9 ml/min Estimated GFR () 71.4 Estimated GFR (Non- 61.6 BUN/Creatinine Ratio 26.1 10-20 Random Glucose 105 70-99 mg/dl Calcium Level 9.2 8.5-10.1 mg/dl Total Bilirubin 0.5 0.2-1 mg/dl Direct Bilirubin 0.1 0-0.2 mg/dl Aspartate Amino Transf (AST/SGOT) 16 15-37 U/L Alanine Aminotransferase (ALT/SGPT) 19 12-78 U/L Alkaline Phosphatase 79 45-117 U/L Total Protein 7.2 6.4-8.2 gm/dl Albumin 3.2 3.4-5.0 gm/dl Diagnostic Radiology CT PELVIS IMPRESSION: Degenerative change. No acute bony abnormality. LEFT HIP X-RAY IMPRESSION: No fracture or dislocation within the left hip. L-SPINE X-RAY IMPRESSION: Significant degenerative change throughout the entire lumbar region. Osteopenia. No acute bony abnormality. LEFT KNEE X-RAY IMPRESSION: 1. No acute fractures 2. Advanced osteoarthritic change. Impression Assessment and Plan LEFT HIP PAIN/LEFT LEG PAIN/AMBULATORY DYSFUNCTION Patient with history of left hip and left leg pain 2 days increased pain today and unable to ambulate at home. No history of falls. In ER no fractures noted on CT pelvis, left hip x-ray or lumbar spine x-ray. Patient given Tylenol, Ativan, tramadol this morning in the ER. Patient still with pain with any attempted movement of her left leg. -Admit med surg -PT/OT eval -Toradol as needed pain -Tramadol as needed for pain -Case management to help in placement -X-ray left knee secondary to patient having left knee pain also - negative for acute fracture ELEVATED BLOOD PRESSURE Patient without history of hypertension. Probable secondary to pain and anxiety. -Attempt control patient's pain with above -Hydralazine IV as needed SBP >180 -Continue to monitor may need to add daily oral antihypertensive meds DEMENTIA Patient reported at baseline per daughter -Monitor for delirium HYPERLIPIDEMIA -Continue statin DVT Prophylaxis -heparin SQ Disposition admit medsurg Full Code as per discussion with pt and pt's daughter Follows with Dr Giles for routine care Pt daughter - Virginie Sebastian Phone#[phone] Pt was seen with Dr Meraz. See addendum ADDENDUM: I have seen and evaluated the patient and agree with the assessment and plan as stated above with the following exceptions. It appears the patient may have an osteoarthritis flare with limited flexion extension of the knee on the left. There is no history of trauma and no fracture present. To treat this will schedule some Tylenol in addition to as needed tramadol and Toradol. PT OT to assess patient tomorrow. Plan for disposition to [facility]. Regarding blood pressure will monitor closely overnight DO Kt Resuscitation Status VTE Prophylaxis Will order VTE Prophylaxis: Yes Additional Copies To Candida Giles D.O.
[2017-12-21 19:50] VITALS: Ht 154.9 cm; Wt 97.7 kg
[2017-12-21] MEDS ORDERED: TRAMADOL HCL 50 MG TAB PO PRN (20:00)
--- NOTE | 2017-12-21 20:04 | DIAGNOSTIC IMAGING REPORT ---
L KNEE 3 VIEWS CLINICAL HISTORY: Left knee pain COMPARISON: None. DISCUSSION: No acute fractures are visualized. There are advanced osteoarthritic changes most pronounced in the lateral joint compartment and patellofemoral joint. The bones are osteopenic. IMPRESSION: 1. No acute fractures 2. Advanced osteoarthritic change. Electronically signed by: Sammy Phillip M.D. 12/21/2017 8:03 PM Dictated Date/Time: 12/21/2017 8:02 PM
[2017-12-21] MEDS ORDERED: IV FLUIDS COMPLETED PRN (20:30)
[2017-12-21] MEDS ORDERED: KETOROLAC TROMETHAMINE 15 MG/ML VIAL ONE (21:27)
[2017-12-21 22:35] VITALS: BP 199/82; PULSE 90; TEMP 36.6
[2017-12-21] MEDS: MIRTAZAPINE SOLTAB 15 MG PO SCH (23:41)
[2017-12-21] MEDS: PRAVASTATIN SOD 40 MG TAB PO SCH (23:41)
[2017-12-21] MEDS: HEPARIN SOD 5000 UNIT/0.5 ML CARP SQ SCH (23:45)
[2017-12-22] VITALS: BP 146/56; PULSE 77
[2017-12-22] MEDS ORDERED: KETOROLAC TROMETHAMINE 15 MG/ML VIAL IV PRN (01:00)
[2017-12-22] MEDS: LEVOTHYROXINE 112 MCG TAB PO SCH (06:14)
[2017-12-22 07:10] VITALS: BP 168/96; PULSE 78; TEMP 36.7; O2SAT 95
[2017-12-22 07:10] LABS: HEMATOCRIT 38.3 % (37-47); HEMOGLOBIN 12.6 g/dL (12.0-16.0); MEAN CELL VOLUME 86.8 fL (80-100); MEAN CORPUSCULAR HEMOGLOBIN 28.6 pg (25-34); MEAN CORPUSCULAR HGB CONC 32.9 g/dl (32-36); MEAN PLATELET VOLUME 10.5 fL (7.4-10.4); PLATELET COUNT 150 K/uL (130-400); RED CELL DISTRIBUTION WIDTH CV 14.4 % (11.5-14.5); RED CELL DISTRIBUTION WIDTH SD 45.6 fL (36.4-46.3); WHITE BLOOD COUNT 5.33 K/uL (4.8-10.8)
[2017-12-22 07:37] LABS: CALCIUM 8.7 mg/dl (8.5-10.1); CREATININE 0.7 mg/dl (0.60-1.20)
[2017-12-22 08:01] VITALS: O2SAT 95
[2017-12-22] MEDS: CEROVITE ADV FORMULA TAB PO SCH (09:23)
[2017-12-22] MEDS: ASPIRIN 81 MG ECTAB PO SCH (09:24)
[2017-12-22] MEDS: ACETAMINOPHEN 325 MG TAB PO SCH ×3 (09:24→20:19)
[2017-12-22] MEDS: HEPARIN SOD 5000 UNIT/0.5 ML CARP SQ SCH ×3 (09:27→20:41)
[2017-12-22 10:54] VITALS: BP 115/59; PULSE 81; O2SAT 94
--- NOTE | 2017-12-22 15:17 | Progress Note ---
Internal Med Progress Note Date of Service: Dec 22, 2017. Provider Documentation: SUBJECTIVE: The patient was seen and examined in presence of the daughter Does not have any complaints but on asking questions she mentioned to have some pain in the left groin Has been ambulating well but we will get physical therapy evaluation Denies to have any chest pain, shortness of breath and palpitation OBJECTIVE: Vital Signs-as noted below Exam: General-no apparent distress at rest Eyes-normal ENT-normal Neck-supple Lungs-clear to auscultation bilaterally Heart-S1-S2 regular, no murmur appreciated Abdomen-benign , nontender,soft , bowel sounds present Extremities-trace edema bilaterally Examination of the hip joint-mild restriction of movement with moderate pain Neuro-AAA 3 Generally weak but no focal neuro deficit Lab data as noted below. ASSESSMENT & PLAN: LEFT HIP PAIN/LEFT LEG PAIN/AMBULATORY DYSFUNCTION Patient with history of left hip and left leg pain 2 days increased pain today and unable to ambulate at home. No history of falls. In ER no fractures noted on CT pelvis, left hip x-ray or lumbar spine x-ray. Patient given Tylenol, Ativan, tramadol this morning in the ER. Patient still with pain with any attempted movement of her left leg. -PT/OT eval -Toradol as needed pain -Tramadol as needed for pain -Case management to help in placement -X-ray left knee secondary to patient having left knee pain also - negative for acute fracture -May need Ortho evaluation if Physical therapy recommends -Clinically in not any distress today ELEVATED BLOOD PRESSURE Patient without history of hypertension. Probable secondary to pain and anxiety. -Attempt control patient's pain with above -Hydralazine IV as needed SBP >180 -Continue to monitor may need to add daily oral antihypertensive meds -BP remains on the higher side -will add Amlodipine 5mg PO daily DEMENTIA Patient reported at baseline per daughter -No acute Delirium HYPERLIPIDEMIA -Continue statin DVT Prophylaxis -heparin SQ Disposition admit medsurg Full Code as per discussion with pt and pt's daughter Follows with Dr Giles for routine care Pt daughter - Virginie Sebastian Phone#[phone] Vital Signs: Date Time Temp Pulse Resp B/P (MAP) Pulse Ox O2 Delivery O2 Flow Rate FiO2 12/22/17 10:54 81 94 12/22/17 08:01 95 Room Air 12/22/17 07:10 36.7 78 20 168/96 (120) 95 Room Air 12/22/17 00:00 Room Air 12/22/17 00:00 77 20 146/56 (86) Room Air 12/21/17 22:35 36.6 90 20 199/82 (121) 12/21/17 21:53 71 20 176/63 98 12/21/17 21:53 78 20 176/63 98 Room Air 12/21/17 20:47 67 18 185/64 98 Room Air 12/21/17 20:17 76 20 196/86 96 Room Air 12/21/17 19:50 Room Air 12/21/17 18:45 65 18 197/92 96 Room Air 12/21/17 17:28 71 20 220/91 99 Room Air 12/21/17 16:04 63 18 165/83 97 Room Air Lab Results: Results Past 24 Hours Test 12/22/17 06:55 Range/Units White Blood Count 5.33 4.8-10.8 K/uL Red Blood Count 4.41 4.2-5.4 M/uL Hemoglobin 12.6 12.0-16.0 g/dL Hematocrit 38.3 37-47 % Mean Corpuscular Volume 86.8 80-100 fL Mean Corpuscular Hemoglobin 28.6 25-34 pg Mean Corpuscular Hemoglobin Concent 32.9 32-36 g/dl RDW Standard Deviation 45.6 36.4-46.3 fL RDW Coefficient of Variation 14.4 11.5-14.5 % Platelet Count 150 130-400 K/uL Mean Platelet Volume 10.5 7.4-10.4 fL Sodium Level 139 136-145 mmol/L Potassium Level 4.0 3.5-5.1 mmol/L Chloride Level 107 98-107 mmol/L Carbon Dioxide Level 27 21-32 mmol/L Anion Gap 5.0 3-11 mmol/L Blood Urea Nitrogen 19 7-18 mg/dl Creatinine 0.70 0.60-1.20 mg/dl Est Creatinine Clear Calc Drug Dose 60.5 ml/min Estimated GFR () 90.3 Estimated GFR (Non- 77.9 BUN/Creatinine Ratio 27.9 10-20 Random Glucose 114 70-99 mg/dl Calcium Level 8.7 8.5-10.1 mg/dl
[2017-12-22 15:28] VITALS: BP 139/73; PULSE 73; TEMP 36.8; O2SAT 97
[2017-12-22] MEDS ORDERED: AMLODIPINE BESYLATE 5 MG TAB PO ONE (15:30)
[2017-12-22] MEDS: MIRTAZAPINE SOLTAB 15 MG PO SCH (20:18)
[2017-12-22] MEDS: PRAVASTATIN SOD 40 MG TAB PO SCH (20:19)
[2017-12-22 22:59] VITALS: BP 170/80; PULSE 76; TEMP 36.9; O2SAT 98
[2017-12-23] MEDS: LEVOTHYROXINE 112 MCG TAB PO SCH (05:59)
[2017-12-23 07:56] VITALS: BP 185/82; PULSE 77; TEMP 36.9; O2SAT 93
[2017-12-23] MEDS: ACETAMINOPHEN 325 MG TAB PO SCH ×3 (07:56→20:45)
[2017-12-23] MEDS: AMLODIPINE BESYLATE 5 MG TAB PO SCH (07:57)
[2017-12-23] MEDS: ASPIRIN 81 MG ECTAB PO SCH (07:57)
[2017-12-23] MEDS: CEROVITE ADV FORMULA TAB PO SCH (07:57)
[2017-12-23] MEDS: HEPARIN SOD 5000 UNIT/0.5 ML CARP SQ SCH ×2 (08:21→20:48)
--- NOTE | 2017-12-23 11:31 | Progress Note ---
Internal Med Progress Note Date of Service: Dec 23, 2017. Provider Documentation: SUBJECTIVE: The patient was seen and examined in presence of the daughter Does not have any complaints but on asking questions she mentioned to have some pain in the left groin Has been ambulating well but we will get physical therapy evaluation Denies to have any chest pain, shortness of breath and palpitation Complains pain in left groin and left knee Ambulating reasonably OBJECTIVE: Vital Signs-as noted below Exam: General-no apparent distress at rest Eyes-normal ENT-normal Neck-supple Lungs-clear to auscultation bilaterally Heart-S1-S2 regular, no murmur appreciated Abdomen-benign , nontender,soft , bowel sounds present Extremities-trace edema bilaterally Examination of the hip joint-mild restriction of movement with moderate pain Neuro-AAA 3 Generally weak but no focal neuro deficit Lab data as noted below. ASSESSMENT & PLAN: LEFT HIP PAIN/LEFT LEG PAIN/AMBULATORY DYSFUNCTION Patient with history of left hip and left leg pain 2 days increased pain today and unable to ambulate at home. No history of falls. In ER no fractures noted on CT pelvis, left hip x-ray or lumbar spine x-ray. Patient given Tylenol, Ativan, tramadol this morning in the ER. Patient still with pain with any attempted movement of her left leg. -PT/OT eval -Toradol as needed pain -Tramadol as needed for pain -Case management to help in placement -X-ray left knee secondary to patient having left knee pain also - negative for acute fracture -May need Ortho evaluation if Physical therapy recommends -Complains pain in left Hip and Knee -will ask Ortho to evaluate before discharge ELEVATED BLOOD PRESSURE Patient without history of hypertension. Probable secondary to pain and anxiety. -Attempt control patient's pain with above -Hydralazine IV as needed SBP >180 -Continue to monitor may need to add daily oral antihypertensive meds -BP remains on the higher side -will add Amlodipine 5mg PO daily -Remains elevated DEMENTIA Patient reported at baseline per daughter -No acute Delirium HYPERLIPIDEMIA -Continue statin DVT Prophylaxis -heparin SQ Disposition admit medsurg Full Code as per discussion with pt and pt's daughter Follows with Dr Giles for routine care Pt daughter - Virginie Sebastian Phone#[phone] Vital Signs: Date Time Temp Pulse Resp B/P (MAP) Pulse Ox O2 Delivery O2 Flow Rate FiO2 12/23/17 07:56 36.9 77 17 185/82 (116) 93 Room Air 12/23/17 07:42 Room Air 12/23/17 00:00 Room Air 12/22/17 22:59 36.9 76 20 170/80 (110) 98 Room Air 12/22/17 16:00 Room Air 12/22/17 15:28 36.8 73 20 139/73 (95) 97 Room Air
--- NOTE | 2017-12-23 12:54 | CONSULTATION REPORT ---
DATE OF CONSULTATION: 12/23/2017 CHIEF COMPLAINT: Left hip and lower extremity pain. HISTORY OF PRESENT ILLNESS: The patient is an 87-year-old female admitted to the hospital for intractable left hip and lower extremity pain. History is per the admitting physician's H and P. She is currently sitting in her bedside chair, her son-in-law is with her. Apparently, she lives with her daughter and son-in-law. Son-in-law states she uses a walker occasionally, but does not use it regularly, just around the house. He denies any recent falls or known trauma. Again, currently she appears comfortable in her chair. I can passively internally/externally rotate her hip without any pain or irritation. She can flex and extend her knee without significant pain. She does have discomfort when attempting to flex her hip and raises her knee towards the ceiling. She does not have a significant intra-articular effusion about her knee. She is nonpainful to palpate about her knee. She does have some mild tenderness about her lateral hip and trochanteric bursa region. The patient had x-rays of the L-spine, hip, and knee as well as a CT scan of the hip and pelvis. All of the studies were negative for acute fracture. She does have significant degenerative changes particularly around the L-spine and knee. Her hip x-rays do not show significant degenerative changes. She does have a severe lateral and patellofemoral compartment DJD around her knee as well as severe degenerative disk disease at L4-L5 and diffuse degenerative disk disease about the lumbar spine. ASSESSMENT: Left hip and lower extremity pain, but no acute findings on imaging studies. PLAN: The above was discussed with the patient and her son-in-law. I told them we could consider an intraarticular knee injection, as her pain towards her thigh and hip could be coming from her degenerative knee. Another option would be to consider a trochanteric bursa injection. I will discuss this with Dr. Drake and we will follow his recommendations.
[2017-12-23] MEDS ORDERED: METHYLPREDNISOLONE ACETATE 80 MG/ML VIAL IA ONE (13:15)
[2017-12-23] MEDS ORDERED: BUPIVACAINE 0.5 % 5 MG/1 ML MPF 30ML VIAL INFIL ONE (13:15)
--- NOTE | 2017-12-23 15:55 | ORTHOPEDIC PROGRESS NOTE ---
DATE: 12/23/2017 SUBJECTIVE: The patient is an 87-year-old white female who was initially seen by Dr. Drake and Gregorio Faith PA-C today for a left knee and hip pain consult. After seeing the patient and examining her, it was felt by Dr. Drake that she would require a trochanteric bursa injection for trochanteric bursitis. It was felt that the knee was not in need of any injection at this time after exam. OBJECTIVE: The patient was sitting in a chair with family present and is pleasant and cooperative. She was placed in bed by the nursing staff and I was asked to lay on her right side which was done very easily. Palpation of the left hip proved to have exquisite tenderness over the left greater trochanter. At that point, the site was marked and was swabbed with 2 alcohol swabs and 3 Betadine swabs and let to dry. 80 mg of Depo-Medrol and 3 mL of .5% bupivacaine were then injected at the site of the trochanteric bursa. The needle was removed and pressure was applied to the injection site. A Band-Aid was then placed over the injection site. ASSESSMENT: Left trochanteric bursitis. PLAN: We will continue to get the patient up for ambulation as tolerated. She can be weightbearing as tolerated at this point in time in left lower extremity. Plans were to watch for any steroid flare ups which could include increased pain and erythema at the site of injection which could be treated with nonsteroidal anti-inflammatories or Tylenol and warm and/or cold compresses at times. We will go ahead and follow up with her in the morning to see how well she has responded to the injection. MARI
[2017-12-23] MEDS: PRAVASTATIN SOD 40 MG TAB PO SCH (20:44)
[2017-12-23] MEDS: MIRTAZAPINE SOLTAB 15 MG PO SCH (20:44)
[2017-12-23 23:14] VITALS: BP 156/78; PULSE 79; TEMP 36.8; O2SAT 94
[2017-12-24] VITALS: O2SAT 94
[2017-12-24] MEDS: LEVOTHYROXINE 112 MCG TAB PO SCH (05:43)
[2017-12-24 06:27] LABS: HEMATOCRIT 38.8 % (37-47); HEMOGLOBIN 12.5 g/dL (12.0-16.0); MEAN CELL VOLUME 87.6 fL (80-100); MEAN CORPUSCULAR HEMOGLOBIN 28.2 pg (25-34); MEAN CORPUSCULAR HGB CONC 32.2 g/dl (32-36); MEAN PLATELET VOLUME 10.5 fL (7.4-10.4); PLATELET COUNT 164 K/uL (130-400); RED CELL DISTRIBUTION WIDTH CV 14.6 % (11.5-14.5); RED CELL DISTRIBUTION WIDTH SD 46.9 fL (36.4-46.3); WHITE BLOOD COUNT 4.52 K/uL (4.8-10.8)
[2017-12-24 07:20] VITALS: BP_SYST 146; BP_SYST 161; BP_DIAS 84; BP_DIAS 86; PULSE 67; TEMP 36.8; O2SAT 94
[2017-12-24] MEDS: CEROVITE ADV FORMULA TAB PO SCH (08:26)
[2017-12-24] MEDS: ASPIRIN 81 MG ECTAB PO SCH (08:26)
[2017-12-24] MEDS: AMLODIPINE BESYLATE 5 MG TAB PO SCH (08:26)
[2017-12-24] MEDS: ACETAMINOPHEN 325 MG TAB PO SCH ×2 (08:27→13:40)
[2017-12-24] MEDS: HEPARIN SOD 5000 UNIT/0.5 ML CARP SQ SCH (08:33)
[2017-12-24 09:31] VITALS: O2SAT 94
--- NOTE | 2017-12-24 11:21 | Progress Note ---
Internal Med Progress Note Date of Service: Dec 24, 2017. Provider Documentation: SUBJECTIVE: The patient was seen and examined in presence of the daughter Does not have any complaints but on asking questions she mentioned to have some pain in the left groin Has been ambulating well but we will get physical therapy evaluation Denies to have any chest pain, shortness of breath and palpitation s/p injection left Trochanteric Bursa Ambulating well with the Daughter OBJECTIVE: Vital Signs-as noted below Exam: General-no apparent distress at rest Eyes-normal ENT-normal Neck-supple Lungs-clear to auscultation bilaterally Heart-S1-S2 regular, no murmur appreciated Abdomen-benign , nontender,soft , bowel sounds present Extremities-trace edema bilaterally Examination of the hip joint-mild restriction of movement with moderate pain Neuro-AAA 3 Generally weak but no focal neuro deficit Lab data as noted below. ASSESSMENT & PLAN: Left Greater Trochanteric Bursitis LEFT HIP PAIN/LEFT LEG PAIN/AMBULATORY DYSFUNCTION Patient with history of left hip and left leg pain 2 days increased pain today and unable to ambulate at home. No history of falls. In ER no fractures noted on CT pelvis, left hip x-ray or lumbar spine x-ray. Patient given Tylenol, Ativan, tramadol this morning in the ER. Patient still with pain with any attempted movement of her left leg. -PT/OT eval -Toradol as needed pain -Tramadol as needed for pain -Case management to help in placement -X-ray left knee secondary to patient having left knee pain also - negative for acute fracture -May need Ortho evaluation if Physical therapy recommends -Complains pain in left Hip and Knee -will ask Ortho to evaluate before discharge - s/p Injection -feels better and ambulating well ELEVATED BLOOD PRESSURE Patient without history of hypertension. Probable secondary to pain and anxiety. -Attempt control patient's pain with above -Hydralazine IV as needed SBP >180 -Continue to monitor may need to add daily oral antihypertensive meds -BP remains on the higher side -will add Amlodipine 5mg PO daily -stable today DEMENTIA Patient reported at baseline per daughter -No acute Delirium HYPERLIPIDEMIA -Continue statin DVT Prophylaxis -heparin SQ Disposition admit medsurg Full Code as per discussion with pt and pt's daughter Follows with Dr Giles for routine care Pt daughter - Virginie Sebastian Phone#[phone] Awaiting to go to [facility] today Vital Signs: Date Time Temp Pulse Resp B/P (MAP) Pulse Ox O2 Delivery O2 Flow Rate FiO2 12/24/17 09:31 94 Room Air 12/24/17 07:20 36.8 67 20 161/84 (109) 94 Room Air 146/86 (106) 12/24/17 00:00 94 Room Air 12/23/17 23:14 36.8 79 16 156/78 (104) 94 Room Air 12/23/17 16:00 Room Air Lab Results: Results Past 24 Hours Test 12/24/17 06:02 Range/Units White Blood Count 4.52 4.8-10.8 K/uL Red Blood Count 4.43 4.2-5.4 M/uL Hemoglobin 12.5 12.0-16.0 g/dL Hematocrit 38.8 37-47 % Mean Corpuscular Volume 87.6 80-100 fL Mean Corpuscular Hemoglobin 28.2 25-34 pg Mean Corpuscular Hemoglobin Concent 32.2 32-36 g/dl RDW Standard Deviation 46.9 36.4-46.3 fL RDW Coefficient of Variation 14.6 11.5-14.5 % Platelet Count 164 130-400 K/uL Mean Platelet Volume 10.5 7.4-10.4 fL
[2017-12-24] MEDS ORDERED: NRV5 PO (13:45)
--- NOTE | 2017-12-24 13:47 | Discharge Instructions ---
Discharge Instructions Date of Service Dec 24, 2017. Admission Reason for Admission: Ambulatory Dysfunction, Left Lumbar Radiculopathy Discharge Discharge Diagnosis / Problem: Left Greater Trochanteric Bursitis,HTN,Am, bulatory dysfunction Discharge Goals Goal(s): Prevent Disease Progression Activity Recommendations Activity Level: Up Ad Halie Therapies: Physical Therapy, Occupational Therapy . Additional Information Patient informed of condition: Yes Advance Directives: No DNR: No Level of Care: Skilled Communicable Disease: No Prognosis: Stable Kaye Catheter: No Instructions / Follow-Up Instructions / Follow-Up Please make an appointment with your PCP in 1 week Current Hospital Diet Patient's current hospital diet: Regular Diet Discharge Diet Recommended Diet: Regular Diet Pending Studies Studies pending at discharge: no Medical Emergencies . Who to Call and When: Medical Emergencies: If at any time you feel your situation is an emergency, please call 911 immediately. . Non-Emergent Contact Non-Emergency issues call your: Primary Care Provider . Past History Medical & Surgical History: (1) Ambulatory dysfunction (2) Right Knee DJD (3) Hypothyroidism (4) Left lumbar radiculopathy (5) H/O thyroidectomy (6) History of total abdominal hysterectomy . "Provider Documentation" section prepared by Talya Gross. . Core Measure Problem Core Measures: None
[2017-12-24 13:53] VITALS: BP 146/86; PULSE 67; TEMP 36.8; O2SAT 94
--- NOTE | 2017-12-24 15:41 | ORTHOPEDIC PROGRESS NOTE ---
DATE: 12/24/2017 SUBJECTIVE: The patient is an 87-year-old white female whom I injected a Depo-Medrol and bupivacaine into the trochanteric bursa yesterday. I am just doing a recheck on the injection site and to see how the patient is responding. Currently, she is sitting up in her chair and she is fully dressed in her street clothes and her daughter is with her. The patient has no complaints currently. She apparently has been ambulating around the hallway without difficulty with a walker with her daughter. The daughter states that she is now able to raise and lower her leg off of the chair and off the bed much easier and she feels that she is doing much better. OBJECTIVE: The patient is currently in her chair and can turn a little bit to her right side for me to gain access to looking at her injection site on her left hip. The area itself in question is benign and no overt erythema. She has a little bit less tenderness on palpation and has better range of motion of her left hip and lower extremity at this time. ASSESSMENT: Left greater trochanteric bursitis. PLAN: At this point, orthopedics will sign off. If she has further problems with her hip she can follow up with Dr. Drake in the office. She is to continue weightbearing as tolerated in left lower extremity and continue to increase her ambulation abilities as able.
--- NOTE | 2017-12-24 18:30 | Discharge Summary ---
Discharge Summary Date of Service Dec 24, 2017. Discharge Summary Admission Date: Dec 21, 2017 at 18:45 Discharge Date: Dec 24, 2017 Discharge Disposition: detention facility Principal Diagnosis: Left Greater Trochanteric Bursitis,HTN,Am,bulatory dysfunction Secondary Diagnoses/Problems: Please see H&P and Hospital progress note Consultations: Ortho Medication Reconciliation New Medications: Amlodipine Besylate (Amlodipine Besylate) 5 Mg Tab 5 MG PO QAM for 30 Days, #30 TAB Continued Medications: Aspirin (Aspirin Ec) 81 Mg Tab 81 MG PO DAILY Calcium Citrate (Vinicio-Citrate) 150 Mg Cap 300 MG PO QAM +D 100 MG Levothyroxine Sodium (Synthroid) 112 Mcg Tab 112 MCG PO QAM, TAB Mirtazapine (Mirtazapine) 15 Mg Tab 15 MG PO HS Multiple Vitamins W/ Minerals (Centrum Silver Ultra Wome) 1 Tab Tab 1 TAB PO QAM Naproxen Sodium (Aleve) 220 Mg Tab 220 MG PO AMPM for Pain, TAB Pravastatin Sodium (Pravastatin Sodium) 40 Mg Tab 40 MG PO QPM Admission Information HPI (per Admitting provider): Pt is 87 y/o F with PMH dementia, dyslipidemia, hypothyroidism presented to ER with complaint of left groin and left leg pain. Patient with history of dementia and limited history obtained from patient, daughter provides majority of history. Patient is alert to place and person and her daughter reports patient at her baseline. Patient lives with her daughter. Daughter reports 2 days ago patient complaining of left groin and left leg pain increased with ambulation. She reports this morning patient attempted to get out of bed and was yelling for her to help. Patient was having increased pain and could not stand. Complains of pain left groin and left lower back radiates down to her lower leg. Patient also complaining of left knee pain. Denies any noted swelling or erythema or ecchymosis of the leg. Denies any known injury. Patient uses Aleve twice daily. Uses cane. Denies any falls. Daughter reports history of right knee replacement 2016 had some elevated blood pressures with pain at that point in time however otherwise does not have a history of hypertension. Patient has been eating and drinking. Patient with chronic urinary and fecal incontinence denies any worsening. Denies any hematuria or dysuria or increased frequency. Denies fever/chills, diaphoresis, N/V/D/C, MARMOLEJO, dizziness, syncope, vision changes, neck pain, CP, SOB, orthopnea, palpitations , cough, sore throat, choking, otalgia, rhinorrhea, abdominal pain, melena, hematochezia extremity edema, rashes, weight changes. In ER given Tylenol, Ativan, tramadol. Had CT pelvis for fracture, left hip x- ray negative for fracture, left spine x-ray negative for fracture posterior degenerative changes. Patient with difficulty ambulating and PT evaluated patient and ER tried to get patient placed to [facility] today however was unable to. Past Medical/Surgical History Medical Problems: (1) HLD (hyperlipidemia) Status: Chronic (2) Hypothyroidism Status: Chronic (3) Osteoporosis Status: Chronic (4) Right Knee DJD Status: Chronic Surgical Problems: (1) H/O thyroidectomy Status: Chronic (2) History of total abdominal hysterectomy Status: Chronic Family History FH: cancer Social History Smoking Status: Never Smoker Smokeless Tobacco Use: No Alcohol Use: Rare Drug Use: none Marital Status: Housing status: lives with family Occupational Status: retired Allergies Coded Allergies: No Known Allergies (Unverified , 01/11/17) Home Medications Scheduled Aspirin (Aspirin Ec), 81 MG PO DAILY Calcium Citrate (Vinicio-Citrate), 300 MG PO QAM Levothyroxine Sodium (Synthroid), 112 MCG PO QAM Mirtazapine (Mirtazapine), 15 MG PO HS Multiple Vitamins W/ Minerals (Centrum Silver Ultra Wome), 1 TAB PO QAM Naproxen Sodium (Aleve), 220 MG PO AMPM Pravastatin Sodium (Pravastatin Sodium), 40 MG PO QPM Review of Systems See HPI for pertinent positives & negatives. All other systems reviewed and were otherwise negative Physical Exam H&P v2 Physical Exam Vital Signs Date Time Temp Pulse Resp B/P (MAP) Pulse Ox O2 Delivery O2 Flow Rate FiO2 12/21/17 18:45 65 18 197/92 96 Room Air 12/21/17 17:28 71 20 220/91 99 Room Air 12/21/17 16:04 63 18 165/83 97 Room Air 12/21/17 13:00 66 18 171/88 98 Room Air 12/21/17 11:30 67 18 167/85 98 Room Air 12/21/17 09:55 66 18 170/85 98 Room Air 12/21/17 09:29 76 20 171/75 98 12/21/17 07:35 70 20 208/99 96 12/21/17 07:13 36.8 88 20 205/137 95 Room Air General Appearance: WD/WN, no apparent distress Head: normocephalic, atraumatic Eyes: normal inspection, PERRL, EOMI, sclerae normal ENT: pharynx normal, + pertinent finding (Hard of hearing, mucous membranes moist) Neck: supple, no JVD, trachea midline Respiratory/Chest: chest non-tender, lungs clear, normal breath sounds, no respiratory distress Cardiovascular: regular rate, rhythm, normal peripheral pulses Abdomen/GI: normal bowel sounds, non tender, soft Back: normal inspection, no CVA tenderness, + pertinent finding (Nontender to palpation) Extremities/Musculoskelatal: + pedal edema (1+ bilaterally), + pertinent finding (No erythema, ecchymosis or rashes noted. Right anterior knee with healed surgical scar. Right hip, knee, ankle with active range of motion intact without tenderness. No tenderness to palpation. Left anterior and lateral hip with mild tenderness to palpation with very limited active flexion secondary to discomfort. Left anterior knee with tenderness to palpation with very limited flexion secondary to discomfort. Distal pulses intact, sensation to light touch intact, brisk capillary refill) Neurologic/Psych: alert, + pertinent finding (Oriented to person and place. Patient mildly anxious) Skin: normal color, warm/dry Diagnostics H&P v2 Diagnostics Laboratory Results Results Past 24 Hours Test 12/21/17 08:00 12/21/17 15:05 12/21/17 18:50 12/21/17 18:56 Range/Units Urine Color YELLOW Urine Appearance CLOUDY CLEAR Urine pH 7.5 4.5-7.5 Urine Specific [place] 1.018 1.000-1.030 Urine Protein NEG NEG Urine Glucose (UA) NEG NEG Urine Ketones NEG NEG Urine Occult Blood NEG NEG Urine Nitrite NEG NEG Urine Bilirubin NEG NEG Urine Urobilinogen NEG NEG Urine Leukocyte Esterase NEG NEG Urine WBC (Auto) 1-5 0-5 /hpf Urine RBC (Auto) 0-4 0-4 /hpf Urine Hyaline Casts (Auto) 0 0-5 /lpf Urine Epithelial Cells (Auto) 0-5 0-5 /lpf Urine Bacteria (Auto) NEG NEG White Blood Count 5.58 4.8-10.8 K/uL Red Blood Count 4.53 4.2-5.4 M/uL Hemoglobin 13.0 12.0-16.0 g/dL Hematocrit 39.8 37-47 % Mean Corpuscular Volume 87.9 80-100 fL Mean Corpuscular Hemoglobin 28.7 25-34 pg Mean Corpuscular Hemoglobin Concent 32.7 32-36 g/dl Platelet Count 165 130-400 K/uL Mean Platelet Volume 11.2 7.4-10.4 fL Neutrophils (%) (Auto) 59.6 % Lymphocytes (%) (Auto) 27.1 % Monocytes (%) (Auto) 9.1 % Eosinophils (%) (Auto) 3.8 % Basophils (%) (Auto) 0.2 % Neutrophils # (Auto) 3.33 1.4-6.5 K/uL Lymphocytes # (Auto) 1.51 1.2-3.4 K/uL Monocytes # (Auto) 0.51 0.11-0.59 K/uL Eosinophils # (Auto) 0.21 0-0.5 K/uL Basophils # (Auto) 0.01 0-0.2 K/uL RDW Standard Deviation 46.0 36.4-46.3 fL RDW Coefficient of Variation 14.3 11.5-14.5 % Immature Granulocyte % (Auto) 0.2 % Immature Granulocyte # (Auto) 0.01 0.00-0.02 K/uL Sodium Level 141 136-145 mmol/L Potassium Level 4.3 3.5-5.1 mmol/L Chloride Level 109 98-107 mmol/L Carbon Dioxide Level 31 21-32 mmol/L Anion Gap 1.0 3-11 mmol/L Blood Urea Nitrogen 22 7-18 mg/dl Creatinine 0.85 0.60-1.20 mg/dl Est Creatinine Clear Calc Drug Dose 49.9 ml/min Estimated GFR () 71.4 Estimated GFR (Non- 61.6 BUN/Creatinine Ratio 26.1 10-20 Random Glucose 105 70-99 mg/dl Calcium Level 9.2 8.5-10.1 mg/dl Total Bilirubin 0.5 0.2-1 mg/dl Direct Bilirubin 0.1 0-0.2 mg/dl Aspartate Amino Transf (AST/SGOT) 16 15-37 U/L Alanine Aminotransferase (ALT/SGPT) 19 12-78 U/L Alkaline Phosphatase 79 45-117 U/L Total Protein 7.2 6.4-8.2 gm/dl Albumin 3.2 3.4-5.0 gm/dl Diagnostic Radiology CT PELVIS IMPRESSION: Degenerative change. No acute bony abnormality. LEFT HIP X-RAY IMPRESSION: No fracture or dislocation within the left hip. L-SPINE X-RAY IMPRESSION: Significant degenerative change throughout the entire lumbar region. Osteopenia. No acute bony abnormality. LEFT KNEE X-RAY IMPRESSION: 1. No acute fractures 2. Advanced osteoarthritic change. Impression H&P v2 Impression Assessment and Plan LEFT HIP PAIN/LEFT LEG PAIN/AMBULATORY DYSFUNCTION Patient with history of left hip and left leg pain 2 days increased pain today and unable to ambulate at home. No history of falls. In ER no fractures noted on CT pelvis, left hip x-ray or lumbar spine x-ray. Patient given Tylenol, Ativan, tramadol this morning in the ER. Patient still with pain with any attempted movement of her left leg. -Admit med surg -PT/OT eval -Toradol as needed pain -Tramadol as needed for pain -Case management to help in placement -X-ray left knee secondary to patient having left knee pain also - negative for acute fracture ELEVATED BLOOD PRESSURE Patient without history of hypertension. Probable secondary to pain and anxiety. -Attempt control patient's pain with above -Hydralazine IV as needed SBP >180 -Continue to monitor may need to add daily oral antihypertensive meds DEMENTIA Patient reported at baseline per daughter -Monitor for delirium HYPERLIPIDEMIA -Continue statin DVT Prophylaxis -heparin SQ Disposition admit medsurg Full Code as per discussion with pt and pt's daughter Follows with Dr Giles for routine care Pt daughter - Virginie Sebastian Phone#[phone] Pt was seen with Dr Meraz. See addendum ADDENDUM: I have seen and evaluated the patient and agree with the assessment and plan as stated above with the following exceptions. It appears the patient may have an osteoarthritis flare with limited flexion extension of the knee on the left. There is no history of trauma and no fracture present. To treat this will schedule some Tylenol in addition to as needed tramadol and Toradol. PT OT to assess patient tomorrow. Plan for disposition to [facility]. Regarding blood pressure will monitor closely overnight [place], DO Resuscitation Status VTE Prophylaxis Will order VTE Prophylaxis: Yes Additional Copies To Candida Giles D.O. Physical Exam (per Admitting): General Appearance: WD/WN, no apparent distress Head: normocephalic, atraumatic Eyes: normal inspection, PERRL, EOMI, sclerae normal ENT: pharynx normal, + pertinent finding (Hard of hearing, mucous membranes moist) Neck: supple, no JVD, trachea midline Respiratory/Chest: chest non-tender, lungs clear, normal breath sounds, no respiratory distress Cardiovascular: regular rate, rhythm, normal peripheral pulses Abdomen/GI: normal bowel sounds, non tender, soft Back: normal inspection, no CVA tenderness, + pertinent finding (Nontender to palpation) Extremities/Musculoskelatal: + pedal edema (1+ bilaterally), + pertinent finding (No erythema, ecchymosis or rashes noted. Right anterior knee with healed surgical scar. Right hip, knee, ankle with active range of motion intact without tenderness. No tenderness to palpation. Left anterior and lateral hip with mild tenderness to palpation with very limited active flexion secondary to discomfort. Left anterior knee with tenderness to palpation with very limited flexion secondary to discomfort. Distal pulses intact, sensation to light touch intact, brisk capillary refill) Neurologic/Psych: alert, + pertinent finding (Oriented to person and place. Patient mildly anxious) Skin: normal color, warm/dry Hospital Course Left Greater Trochanteric Bursitis LEFT HIP PAIN/LEFT LEG PAIN/AMBULATORY DYSFUNCTION Patient with history of left hip and left leg pain 2 days increased pain today and unable to ambulate at home. No history of falls. In ER no fractures noted on CT pelvis, left hip x-ray or lumbar spine x-ray. Patient given Tylenol, Ativan, tramadol this morning in the ER. Patient still with pain with any attempted movement of her left leg. -PT/OT eval -Toradol as needed pain -Tramadol as needed for pain -Case management to help in placement -X-ray left knee secondary to patient having left knee pain also - negative for acute fracture -May need Ortho evaluation if Physical therapy recommends -Complains pain in left Hip and Knee -will ask Ortho to evaluate before discharge - s/p Injection -feels better and ambulating well ELEVATED BLOOD PRESSURE Patient without history of hypertension. Probable secondary to pain and anxiety. -Attempt control patient's pain with above -Hydralazine IV as needed SBP >180 -Continue to monitor may need to add daily oral antihypertensive meds -BP remains on the higher side -will add Amlodipine 5mg PO daily -stable today DEMENTIA Patient reported at baseline per daughter -No acute Delirium HYPERLIPIDEMIA -Continue statin DVT Prophylaxis -heparin SQ Disposition admit medsurg Full Code as per discussion with pt and pt's daughter Follows with Dr Giles for routine care Pt daughter - Virginie Sebastian Phone#[phone] Awaiting to go to [facility] today Total time spent on discharge = This includes examination of the patient, discharge planning, medication reconciliation, and communication with other providers. Discharge Instructions Date of Service Dec 24, 2017. Admission Reason for Admission: Ambulatory Dysfunction, Left Lumbar Radiculopathy Discharge Discharge Diagnosis / Problem: Left Greater Trochanteric Bursitis,HTN,Am, bulatory dysfunction Discharge Goals Goal(s): Prevent Disease Progression Activity Recommendations Activity Level: Up Ad Halie Therapies: Physical Therapy, Occupational Therapy . Additional Information Patient informed of condition: Yes Advance Directives: No DNR: No Level of Care: Skilled Communicable Disease: No Prognosis: Stable Kaye Catheter: No Instructions / Follow-Up Instructions / Follow-Up Please make an appointment with your PCP in 1 week Current Hospital Diet Patient's current hospital diet: Regular Diet Discharge Diet Recommended Diet: Regular Diet Pending Studies Studies pending at discharge: no Medical Emergencies . Who to Call and When: Medical Emergencies: If at any time you feel your situation is an emergency, please call 911 immediately. . Non-Emergent Contact Non-Emergency issues call your: Primary Care Provider . Past History Medical & Surgical History: (1) Ambulatory dysfunction (2) Right Knee DJD (3) Hypothyroidism (4) Left lumbar radiculopathy (5) H/O thyroidectomy (6) History of total abdominal hysterectomy . "Provider Documentation" section prepared by Talya Gross. . Core Measure Problem Core Measures: None <Electronically signed by Talya Gross M.D.> Signed: 12/24/17 [id number] Additional Copies To Candida Giles D.O.
== END 2017-12-24 14:39 ==
LOC: EDBD 07:05 → C.EDB 07:07 → C.MS2W 18:45 → ENRESERV 19:39
PROVIDERS: ADMIT Hospitalist; ATTEND Internal Medicine
DX: M70.62 Trochanteric bursitis, left hip (principal); M54.16 Radiculopathy, lumbar region; R03.0 Elevated blood-pressure reading, without diagnosis of hypertension; R26.9 Unspecified abnormalities of gait and mobility; M81.0 Age-related osteoporosis without current pathological fracture; M17.11 Unilateral primary osteoarthritis, right knee; F03.90 Unspecified dementia, unspecified severity, without behavioral disturbance, psychotic disturbance, mood disturbance, and anxiety; E03.9 Hypothyroidism, unspecified; E78.5 Hyperlipidemia, unspecified; Z79.82 Long term (current) use of aspirin; Z79.899 Other long term (current) drug therapy